=== PATIENT | female | born 2000 | race Caucasian/White ===

== ENCOUNTER → 2020-11-23 | Outpatient (CLI) | payer OTHER ==
[2020-11-23 19:50] LABS: Basophils # (A) 0.03 X 10*3/uL (0.00-0.10); Basophils % (A) 0.5 %; Eosinophils # (A) 0.12 X 10*3/uL (0.04-0.35); Eosinophils % (A) 2.1 %; Lymphocytes # (A) 2.18 X 10*3/uL (0.90-5.00); Lymphocytes % (A) 38.8 %; MCH 28.7 pg (27.0-32.0); MCHC 32.7 g/dL (32.0-37.0); MCV 87.8 fL (80.0-97.0); Mean Platelet Volume 11.2 fL (9.5-12.2); Monocytes # (A) 0.73 X 10*3/uL (0.20-1.00); Neutrophils # (A) 2.55 X 10*3/uL (1.80-7.70); Neutrophils % (A) 45.4 %; Platelet Count 291 X 10*3/uL (140-440); RBC 5.58 X 10*6/uL (4.10-5.20); RDW 12.3 % (11.5-14.5); WBC 5.62 X 10*3/uL (4.50-10.00)
[2020-11-23 22:07] LABS: Erythrocyte Sedimentation Rate 3 mm/Hr (0-20)
[2020-11-24 02:28] LABS: T4, Free (Free Thyroxine) 1.3 ng/dL (0.83-1.43)
[2020-11-24 05:06] LABS: African American GFR (CKD) 93.9 (60.0-200.0); Albumin/Globulin Ratio 1.85 (1.60-3.17); Anion Gap 15.2 mmol/L (4.00-12.00); C Reactive Protein 0.6 mg/dL (0.0-0.8); Calcium 9.6 mg/dL (8.7-10.3); Carbon Dioxide 18.8 mmol/L (21.6-31.8); Chol/HDL Ratio 5.57; Globulin 2.7 g/dL (1.6-3.3); Potassium 4.2 mmol/L (3.5-5.5); Total Bilirubin 0.8 mg/dL (0.3-1.2); Total Protein 7.7 g/dL (6.2-8.2)
[2020-11-24 06:05] LABS: Anti-DNA, DS unit <1.0 IU/mL; Anti-Smith Ab Interp NEGATIVE (NEGATIVE); DNA Double-Stranded NEGATIVE (NEGATIVE)
[2020-11-24 15:10] LABS: C-ANCA <1:20 Titer (<1:20)
== END | disposition home or self-care (01) ==
LOC: LABWHC1 12:18
PROVIDERS: ATTEND Internal Medicine
DX: Z00.00 Encounter for general adult medical examination without abnormal findings (principal); D64.9 Anemia, unspecified; I10 Essential (primary) hypertension; E78.5 Hyperlipidemia, unspecified; E55.9 Vitamin D deficiency, unspecified; L40.9 Psoriasis, unspecified; D89.89 Other specified disorders involving the immune mechanism, not elsewhere classified
CPT/HCPCS: 36415; 80053; 80061; 82306; 82550; 84439; 84443; 85025; 85652; 86038; 86140; 86225; 86235; 86255

== ENCOUNTER → 2020-12-06 | Outpatient (CLI) | payer OTHER ==
--- NOTE | 2020-12-06 12:21 | US ---
EXAMINATION TYPE: US abdomen complete DATE OF EXAM: 12/06/2020 COMPARISON: NONE CLINICAL HISTORY: R94.5, K75.9, E11.65, E55.9. Abnormal liver enzymes EXAM MEASUREMENTS: Liver Length: 13.4 cm Gallbladder Wall: 0.2 cm CBD: 0.5 cm Spleen: 13.2 cm Right Kidney: 12.7 x 5.3 x 5.9 cm Left Kidney: 12.7 x 5.9 x 5.8 cm Pancreas: visualized portions appear echogenic Liver: difficult to penetrate , some mild fatty infiltration may be present. Gallbladder: No stones seen Evidence for sonographic Harrell's sign: Yes CBD: wnl Spleen: wnl Right Kidney: No hydronephrosis or masses seen Left Kidney: No hydronephrosis or masses seen Upper IVC: wnl Abd Aorta: wnl IMPRESSION: 1. Mild fatty infiltration of the liver.
[2020-12-06 20:38] LABS: Hepatitis A Antibody IgM Non-Reactive (Non-Reactive); Hepatitis B Core IgM Non-Reactive (Non-Reactive); Hepatitis B Surface Antigen Non-Reactive (Non-Reactive); Hepatitis C IgG Antibody Non-Reactive (Non-Reactive)
== END | disposition home or self-care (01) ==
LOC: RADUSWWP 07:49
PROVIDERS: ATTEND Internal Medicine
DX: K76.0 Fatty (change of) liver, not elsewhere classified (principal); R94.5 Abnormal results of liver function studies; K75.9 Inflammatory liver disease, unspecified; E11.65 Type 2 diabetes mellitus with hyperglycemia; E55.9 Vitamin D deficiency, unspecified
CPT/HCPCS: 36415; 76700; 80074; 82947; 82950

== ENCOUNTER → 2022-06-06 | Outpatient (CLI) | payer OTHER ==
--- NOTE | 2022-06-06 07:50 | US ---
EXAMINATION TYPE: US liver DATE OF EXAM: 06/06/2022 COMPARISON: 12/06/2020 CLINICAL HISTORY: K76.5 HEPATIC VENO-OCCLUSIVE DISEASE. Routine follow up from prior exam TECHNIQUE: Multiple sonographic images of the right upper quadrant are obtained. FINDINGS: EXAM MEASUREMENTS: Liver Length: 16.1 cm Gallbladder Wall: 0.20 cm CBD: 0.39 cm Right Kidney: 11.1 x 5.5 x 5.3 cm Pancreas: Tail obscured by overlying bowel gas, remaining portions appear echogenic Liver: Increased attenuation, decreased visualization of vessels suggestive of fatty infiltrate Gallbladder: wnl Evidence for sonographic Harrell's sign: No CBD: wnl Right Kidney: wnl IMPRESSION: Hepatocellular disease commonly relating to hepatic steatosis. Poor visualization of the hepatic vess els.
== END | disposition home or self-care (01) ==
LOC: RADUSWWP 06:54
PROVIDERS: ATTEND Internal Medicine
DX: K76.5 Hepatic veno-occlusive disease (principal)
CPT/HCPCS: 76705

== ENCOUNTER → 2022-07-04 | Outpatient (CLI) | payer OTHER ==
[2022-07-04 18:16] LABS: Basophils # (A) 0.04 X 10*3/uL (0.00-0.10); Basophils % (A) 0.7 %; Eosinophils # (A) 0.07 X 10*3/uL (0.04-0.35); Eosinophils % (A) 1.2 %; HGB 14.4 g/dL (12.0-15.0); Immature Grans, Automated 0.2 %; Lymphocytes % (A) 33.6 %; MCH 29.1 pg (27.0-32.0); MCHC 32.7 g/dL (32.0-37.0); MCV 89.1 fL (80.0-97.0); Mean Platelet Volume 11.4 fL (9.5-12.2); Monocytes # (A) 0.63 X 10*3/uL (0.20-1.00); Monocytes % (A) 11.2 %; NRBC Per 100 WBC 0 /100 WBCS (0.0-0.0); Neutrophils % (A) 53.1 %; Platelet Count 267 X 10*3/uL (140-440); RBC 4.94 X 10*6/uL (4.10-5.20); RDW 12.6 % (11.5-14.5); WBC 5.65 X 10*3/uL (4.50-10.00)
[2022-07-04 18:29] LABS: ALT 122 U/L (8-44); AST 47 U/L (13-35); African American GFR (CKD) 121.3 (60.0-200.0); Albumin 4.3 g/dL (3.8-4.9); Albumin/Globulin Ratio 1.59 (1.60-3.17); Alkaline Phosphatase 77 U/L (41-126); Blood Urea Nitrogen 14.8 mg/dL (9.0-27.0); Calcium 9.2 mg/dL (8.7-10.3); Carbon Dioxide 22.6 mmol/L (20.0-27.5); Chloride 104 mmol/L (96-109); Creatine Kinase 67 U/L (26-186); Globulin 2.7 g/dL (1.6-3.3); Glucose 205 mg/dL (70-110); Magnesium 1.9 mg/dL (1.5-2.4); Non-African American GFR(CKD) 104.6 (60.0-200.0); Phosphorus 2.4 mg/dL (2.4-5.1); Potassium 4.4 mmol/L (3.5-5.5); Sodium 138 mmol/L (135-145); Uric Acid 5.4 mg/dL (2.9-7.7)
[2022-07-04 18:38] LABS: Chol/HDL Ratio 5.38 Ratio; HCG,Quantitative Serum <3.0 (0.0-6.0); LDL Cholesterol,Calculated 174.5 mg/dL (0.0-131.0)
[2022-07-04 18:48] LABS: Erythrocyte Sedimentation Rate 21 mm/Hr (0-20)
[2022-07-04 18:52] LABS: Hepatitis B Surface Antigen Nonreactive (Nonreactive)
[2022-07-04 19:06] LABS: Hepatitis B Surface AB- Quant 3.5 mIU/mL; Hepatitis B Surface Antibody Nonreactive (Nonreactive)
[2022-07-04 22:22] LABS: Appearance,Urine Turbid (Clear); Bilirubin,Urine Negative (Negative); Blood,Urine Moderate (Negative); Color,Urine Yellow (Yellow); Ketones,Urine 15 mg/dL (Negative); Nitrite,Urine Negative (Negative); PH, Urine 5.5 (5.0-8.0); Specific Gravity,Urine 1.034 (1.001-1.030); Urobilinogen,Urine 0.2 (0.2,1.0)
[2022-07-04 22:45] LABS: Bacteria,Urine 3+ /HPF (None Seen); Calcium Oxalate Crystals,Urine Present /LPF (None Seen)
[2022-07-05 03:24] LABS: Anti-DNA, DS unit <1.0 IU/mL; DNA Double-Stranded NEGATIVE (NEGATIVE)
== END | disposition home or self-care (01) ==
LOC: LABWHC1 10:38
PROVIDERS: ATTEND Student in an Organized Health Care Education/Training Program
DX: Z00.00 Encounter for general adult medical examination without abnormal findings (principal); E03.9 Hypothyroidism, unspecified; E78.5 Hyperlipidemia, unspecified; E11.65 Type 2 diabetes mellitus with hyperglycemia; E78.2 Mixed hyperlipidemia; E55.9 Vitamin D deficiency, unspecified; E66.9 Obesity, unspecified; L40.0 Psoriasis vulgaris; D64.9 Anemia, unspecified; K75.9 Inflammatory liver disease, unspecified; D89.9 Disorder involving the immune mechanism, unspecified; R94.5 Abnormal results of liver function studies
CPT/HCPCS: 36415; 80053; 80061; 81001; 82306; 82550; 83036; 83525; 83735; 84100; 84439; 84443; 84550; 84702; 85025; 85652; 86038; 86140; 86225; 86480; 86706; 87340